=== PATIENT | female | born 1945 | race Caucasian/White ===

== ENCOUNTER → 2018-05-16 | Outpatient (CLI) | payer OTHER, MEDICARE ==
[~2018-05-16] MED LIST: CHOL500045 PO; LACT1CAP35 PO; LEVO112T4 PO; LEVO125T5 PO; LOSA1TAB22 PO; LOSA25TA5 PO; MULT-257 PO; VIT1CAPS10 PO
[2018-05-16 16:15] LABS: BASOPHILS # (AUTO) 0.03 x10^3/uL (0-0.1); BASOPHILS % (AUTO) 0 % (0-1); EOSINOPHILS # (AUTO) 0.09 x10^3/uL (0-0.4); EOSINOPHILS % (AUTO) 1 % (1-7); LYMPHOCYTES # (AUTO) 1.63 x10^3/uL (1-3.4); LYMPHOCYTES % (AUTO) 21 % (22-44); MD NO; MEAN CORPUSCULAR HEMOGLOBIN 32.3 pg (27.0-34.8); MEAN CORPUSCULAR HGB CONC 34.2 g/dL (32.4-35.8); MEAN CORPUSCULAR VOLUME 94.3 fL (80-100); MEAN PLATELET VOLUME 8.7 fL (7.4-10.4); MONOCYTES # (AUTO) 0.54 x10^3/uL (0.2-0.8); MONOCYTES % (AUTO) 7 % (2-9); NEUTROPHILS # (AUTO) 5.54 x10^3/uL (1.8-6.8); NEUTROPHILS % (AUTO) 71 % (42-75); PLATELET COUNT 225 x10^3/uL (130-400); RED BLOOD COUNT 4.02 x10^6/uL (3.82-5.3)
[2018-05-16 16:19] LABS: ALANINE AMINOTRANSFERASE 24 U/L (12-78); ALBUMIN 3.9 g/dL (3.4-5.0); ANION GAP 5 mmol/L (5-15); CALCIUM 8.2 mg/dL (8.5-10.1); CHLORIDE 107 mmol/L (98-107); CREATININE 0.93 mg/dL (0.55-1.02)
[2018-05-16 16:21] LABS: ALKALINE PHOSPHATASE 87 U/L (45-117); BILIRUBIN,TOTAL 0.3 mg/dL (0.2-1.0); TOTAL PROTEIN 7.3 g/dL (6.4-8.2)
[2018-05-16 16:23] LABS: INTERNATIONAL NORMALIZED RATIO 0.93 (0.93-1.1); MICROSCOPIC AUTO; PROTHROMBIN TIME 9.7 Seconds (9.6-11.5)
== END | disposition home or self-care (01) ==
LOC: STAR 14:59
PROVIDERS: ATTEND Urology
DX: Z01.818 Encounter for other preprocedural examination (principal); D49.512 Neoplasm of unspecified behavior of left kidney; I10 Essential (primary) hypertension; E66.01 Morbid (severe) obesity due to excess calories; E03.9 Hypothyroidism, unspecified
CPT/HCPCS: 36415; 71046; 80053; 81001; 85025; 85610; 85730; 87086; 93005

== ENCOUNTER 2018-06-06 10:08 | Inpatient (IN) | payer OTHER, MEDICARE ==
[~2018-06-06] VITALS: Ht 167.6 cm; Wt 80.9 kg
[2018-06-06] MEDS ORDERED: SODIUM CHLORIDE FLUSH 10ML SYR IVF ONE (10:30)
[2018-06-06] MEDS ORDERED: ONDANSETRON 2MG/ML, 2ML IVPush ONE (10:30)
[2018-06-06] MEDS ORDERED: SODIUM CHLORIDE 0.9% 1,000ML IVBOLUS ONE (10:30)
[2018-06-06] MEDS ORDERED: PLEASE ENTER WEIGHT MC SCH (10:31)
[2018-06-06] MEDS ORDERED: ONDANSETRON 2MG/ML, 2ML ONE (10:53)
[2018-06-06] MEDS ORDERED: MORPHINE SULFATE 4 MG/ML, 1ML ONE (10:54)
[2018-06-06] MEDS: MORPHINE SULFATE 4 MG/ML, 1ML IVPush PRN ×2 (10:55→19:50)
[2018-06-06 11:00] LABS: BASOPHILS # (AUTO) 0.01 x10^3/uL (0-0.1); BASOPHILS % (AUTO) 0 % (0-1); EOSINOPHILS % (AUTO) 0 % (1-7); LYMPHOCYTES # (AUTO) 0.49 x10^3/uL (1-3.4); LYMPHOCYTES % (AUTO) 4 % (22-44); MD NO; MEAN CORPUSCULAR HEMOGLOBIN 31.8 pg (27.0-34.8); MEAN CORPUSCULAR HGB CONC 33.7 g/dL (32.4-35.8); MEAN CORPUSCULAR VOLUME 94.2 fL (80-100); MEAN PLATELET VOLUME 8.8 fL (7.4-10.4); MONOCYTES # (AUTO) 0.55 x10^3/uL (0.2-0.8); MONOCYTES % (AUTO) 4 % (2-9); NEUTROPHILS # (AUTO) 11.51 x10^3/uL (1.8-6.8); NEUTROPHILS % (AUTO) 92 % (42-75); PLATELET COUNT 259 x10^3/uL (130-400); RED BLOOD COUNT 4.81 x10^6/uL (3.82-5.3); RED CELL DISTRIBUTION WIDTH 12.9 % (9.6-15.2)
[2018-06-06 11:13] LABS: ANION GAP 9 mmol/L (5-15); CALCIUM 8.8 mg/dL (8.5-10.1); CHLORIDE 106 mmol/L (98-107)
[2018-06-06 11:15] LABS: CREATININE 0.93 mg/dL (0.55-1.02)
[2018-06-06] MEDS ORDERED: OMNIPAQUE 350 MG/ML, 100ML BOTTLE ONE (11:35)
[2018-06-06 12:21] LABS: MICROSCOPIC INDICATED
[2018-06-06 12:33] LABS: CULTURE INDICATED? NO
[2018-06-06] MEDS ORDERED: ONDANSETRON ODT 4 MG PO PRN (13:00)
[2018-06-06] MEDS ORDERED: LABETALOL 5MG/ML, 20ML IVPush PRN (13:00)
[2018-06-06 13:42] VITALS: BP 130/80
[2018-06-06 13:48] LABS: FREE T4 (FREE THYROXINE) 1.45 ng/dL (0.76-1.46)
[2018-06-06] MEDS: morphine SULFATE 10 MG/ML, 1ML IVPush PRN (15:07)
[2018-06-06] MEDS: D5%-0.45% NACL 1,000 ML IV SCH (15:07)
[2018-06-06 19:31] VITALS: BP 114/74
[2018-06-06] MEDS: FAMOTIDINE 20 MG/2 ML IVPush SCH (19:50)
[2018-06-06] MEDS: ONDANSETRON 2MG/ML, 2ML IVPush PRN (19:50)
[2018-06-07] MEDS: D5%-0.45% NACL 1,000 ML IV SCH ×3 (00:03→16:00)
[2018-06-07] MEDS: morphine SULFATE 10 MG/ML, 1ML IVPush PRN ×3 (00:17→08:49)
[2018-06-07 01:00] VITALS: BP 103/71
[2018-06-07 04:57] LABS: BASOPHILS # (AUTO) 0.01 x10^3/uL (0-0.1); BASOPHILS % (AUTO) 0 % (0-1); EOSINOPHILS # (AUTO) 0.08 x10^3/uL (0-0.4); EOSINOPHILS % (AUTO) 2 % (1-7); LYMPHOCYTES # (AUTO) 0.77 x10^3/uL (1-3.4); LYMPHOCYTES % (AUTO) 22 % (22-44); MD NO; MEAN CORPUSCULAR HEMOGLOBIN 31.9 pg (27.0-34.8); MEAN CORPUSCULAR HGB CONC 33.9 g/dL (32.4-35.8); MEAN CORPUSCULAR VOLUME 94.1 fL (80-100); MEAN PLATELET VOLUME 8.6 fL (7.4-10.4); MONOCYTES % (AUTO) 17 % (2-9); NEUTROPHILS % (AUTO) 58 % (42-75); PLATELET COUNT 223 x10^3/uL (130-400); RED BLOOD COUNT 4.05 x10^6/uL (3.82-5.3); RED CELL DISTRIBUTION WIDTH 13.4 % (9.6-15.2)
[2018-06-07 05:00] LABS: ALBUMIN 3.1 g/dL (3.4-5.0); ANION GAP 4 mmol/L (5-15); CALCIUM 8.1 mg/dL (8.5-10.1); CHLORIDE 109 mmol/L (98-107)
[2018-06-07 05:12] LABS: ALANINE AMINOTRANSFERASE 16 U/L (12-78); ALKALINE PHOSPHATASE 63 U/L (45-117); BILIRUBIN,TOTAL 0.8 mg/dL (0.2-1.0); CREATININE 0.75 mg/dL (0.55-1.02); THYROID STIMULATING HORMONE 0.193 mIU/L (0.358-3.740); TOTAL PROTEIN 6.2 g/dL (6.4-8.2)
[2018-06-07 07:53] VITALS: BP 118/75
[2018-06-07] MEDS: FAMOTIDINE 20 MG/2 ML IVPush SCH ×2 (08:50→21:25)
[2018-06-07] MEDS: ONDANSETRON 2MG/ML, 2ML IVPush PRN (09:09)
[2018-06-07] MEDS ORDERED: MIDAZOLAM 1 MG/ML, 2ML ONE (11:15)
[2018-06-07] MEDS ORDERED: FENTANYL PF 250 MCG/5ML ONE (11:15)
[2018-06-07] MEDS ORDERED: PROPOFOL 10 MG/ML, 20ML ONE (11:16)
[2018-06-07] MEDS ORDERED: SUCCINYLCHOLINE 20 MG/ML, 10ML ONE (11:17)
[2018-06-07] MEDS ORDERED: ROCURONIUM 10MG/ML,5ML ONE (11:17)
[2018-06-07] MEDS ORDERED: NEOSTIGMINE 1 MG/ML, 10ML ONE (11:18)
[2018-06-07] MEDS ORDERED: GLYCOPYRROLATE 0.4 MG/2 ML, 2ML ONE (11:18)
[2018-06-07] MEDS ORDERED: CEFAZOLIN 1,000 MG ONE ×2 (11:19)
[2018-06-07] MEDS ORDERED: WATER-INJECTION,STERILE 10 ML IV ONE (11:19)
[2018-06-07] MEDS ORDERED: EPINEPHRINE 1 MG/ML, 1ML ONE (12:18)
[2018-06-07] MEDS ORDERED: BACITRACIN 50,000 UNIT ONE (12:18)
[2018-06-07] MEDS ORDERED: BUPIVACAINE/PF 0.5% ONE (12:18)
[2018-06-07] MEDS ORDERED: SCOPOLAMINE PATCH, 1.5MG PATCH.TD72 TD ONE (12:39)
[2018-06-07] MEDS ORDERED: PROMETHAZINE 25 MG SUPP PR PRN (13:00)
[2018-06-07] MEDS ORDERED: PROMETHAZINE 12.5 MG SUPP PR PRN (13:00)
[2018-06-07] MEDS ORDERED: hydrALAzine 20 MG/ML, 1ML IV PRN (13:00)
[2018-06-07] MEDS ORDERED: OXYcodone 5 MG/5 ML ORAL.SOL UDC PO PRN (13:00)
[2018-06-07] MEDS ORDERED: ONDANSETRON 2MG/ML, 2ML IV PRN ×2 (13:00→19:00)
[2018-06-07] MEDS ORDERED: ACETAMINOPHEN 325 MG TABLET PO PRN (13:00)
[2018-06-07] MEDS ORDERED: PROMETHAZINE 25 MG/ML, 1ML IV PRN (13:00)
[2018-06-07] MEDS ORDERED: ONDANSETRON ODT 8 MG PO PRN (13:00)
[2018-06-07] MEDS ORDERED: FENTANYL PF 100 MCG/2ML IV PRN (13:00)
[2018-06-07] MEDS ORDERED: MEPERIDINE/PF 25MG/0.5ML IVPush PRN (13:00)
[2018-06-07] MEDS ORDERED: LABETALOL 5MG/ML, 20ML IV PRN (13:00)
[2018-06-07] MEDS ORDERED: HYDROmorphone 1 MG/ML, 1ML IV PRN (13:00)
[2018-06-07] MEDS ORDERED: MORPHINE SULFATE 4 MG/ML, 1ML IVPush PRN (13:00)
[2018-06-07] MEDS ORDERED: ONDANSETRON 2MG/ML, 2ML ONE (13:10)
[2018-06-07] MEDS ORDERED: DEXAMETHASONE 4 MG/ML, 1ML ONE ×2 (13:10)
[2018-06-07] MEDS ORDERED: PHENYLEPHRINE 10 MG/ML ONE (17:01)
[2018-06-07 19:10] VITALS: BP 120/76
[2018-06-07] MEDS: CEFAZOLIN PMX 1GM/50ML 50 ML IVPB SCH (21:25)
[2018-06-07] MEDS: D5%-0.45NACL+KCL 20MEQ 1,000 ML IV SCH (21:25)
[2018-06-08] MEDS: ACETAMINOPHEN 325 MG TABLET PO PRN ×3 (00:29→13:12)
[2018-06-08 00:43] VITALS: BP 115/59
[2018-06-08 05:02] LABS: ALBUMIN 2.6 g/dL (3.4-5.0); ANION GAP 4 mmol/L (5-15); CALCIUM 7.9 mg/dL (8.5-10.1); CHLORIDE 107 mmol/L (98-107); CREATININE 0.72 mg/dL (0.55-1.02)
[2018-06-08] MEDS: CEFAZOLIN PMX 1GM/50ML 50 ML IVPB SCH (05:11)
[2018-06-08 05:22] LABS: BASOPHILS % (AUTO) 0 % (0-1); EOSINOPHILS # (AUTO) 0.01 x10^3/uL (0-0.4); EOSINOPHILS % (AUTO) 0 % (1-7); LYMPHOCYTES # (AUTO) 0.73 x10^3/uL (1-3.4); LYMPHOCYTES % (AUTO) 16 % (22-44); MD NO; MEAN CORPUSCULAR HEMOGLOBIN 32.2 pg (27.0-34.8); MEAN CORPUSCULAR HGB CONC 34.2 g/dL (32.4-35.8); MEAN CORPUSCULAR VOLUME 94.3 fL (80-100); MEAN PLATELET VOLUME 8.8 fL (7.4-10.4); MONOCYTES % (AUTO) 17 % (2-9); NEUTROPHILS # (AUTO) 3.13 x10^3/uL (1.8-6.8); NEUTROPHILS % (AUTO) 67 % (42-75); PLATELET COUNT 194 x10^3/uL (130-400); RED BLOOD COUNT 3.71 x10^6/uL (3.82-5.3); RED CELL DISTRIBUTION WIDTH 13.1 % (9.6-15.2)
[2018-06-08] MEDS: D5%-0.45NACL+KCL 20MEQ 1,000 ML IV SCH ×3 (05:40→22:38)
[2018-06-08 07:40] VITALS: BP 110/71
[2018-06-08] MEDS: FAMOTIDINE 20 MG/2 ML IVPush SCH ×2 (08:11→21:11)
[2018-06-08] MEDS: LEVOTHYROXINE 112 MCG TABLET PO SCH (08:32)
[2018-06-08 13:38] VITALS: BP 127/78
[2018-06-08 20:09] VITALS: BP 121/72
[2018-06-08] MEDS: CALCIUM CARBONATE 500 MG TAB.CHEW PO PRN (23:39)
[2018-06-09 03:55] VITALS: BP 107/71
[2018-06-09] MEDS: LEVOTHYROXINE 112 MCG TABLET PO SCH (06:07)
[2018-06-09] MEDS: D5%-0.45NACL+KCL 20MEQ 1,000 ML IV SCH (06:08)
[2018-06-09] MEDS: FAMOTIDINE 20 MG/2 ML IVPush SCH (08:09)
[2018-06-09] MEDS: LOSARTAN 25MG TABLET PO SCH (08:09)
[2018-06-09 08:20] VITALS: BP 112/71
[2018-06-09 08:52] LABS: BASOPHILS # (AUTO) 0.02 x10^3/uL (0-0.1); BASOPHILS % (AUTO) 0 % (0-1); EOSINOPHILS # (AUTO) 0.09 x10^3/uL (0-0.4); EOSINOPHILS % (AUTO) 2 % (1-7); LYMPHOCYTES # (AUTO) 1.15 x10^3/uL (1-3.4); LYMPHOCYTES % (AUTO) 18 % (22-44); MD NO; MEAN CORPUSCULAR HGB CONC 33.1 g/dL (32.4-35.8); MEAN CORPUSCULAR VOLUME 93.8 fL (80-100); MEAN PLATELET VOLUME 8.4 fL (7.4-10.4); MONOCYTES # (AUTO) 0.59 x10^3/uL (0.2-0.8); MONOCYTES % (AUTO) 10 % (2-9); NEUTROPHILS # (AUTO) 4.38 x10^3/uL (1.8-6.8); NEUTROPHILS % (AUTO) 70 % (42-75); PLATELET COUNT 200 x10^3/uL (130-400); RED BLOOD COUNT 3.81 x10^6/uL (3.82-5.3); RED CELL DISTRIBUTION WIDTH 13.2 % (9.6-15.2)
[2018-06-09 09:02] LABS: ANION GAP 5 mmol/L (5-15); CALCIUM 7.5 mg/dL (8.5-10.1); CHLORIDE 107 mmol/L (98-107); CREATININE 0.71 mg/dL (0.55-1.02)
[2018-06-09] MEDS ORDERED: MAGNESIUM SULFATE PMX 2GM/50ML 50 ML IV ONE (13:00)
[2018-06-09] MEDS ORDERED: SODIUM PHOSPHATE 4 MEQ/ML IV SCH (13:00)
[2018-06-09 13:40] VITALS: BP 112/71
[2018-06-09] MEDS ORDERED: SODIUM PHOSPHATE 30 MMOL in SODIUM CHLORIDE 0.9% 500 ML IV ONE (14:00)
[2018-06-09] MEDS: TAMSULOSIN 0.4 MG CAP.ER.24H PO SCH (14:23)
[2018-06-09] MEDS: CALCIUM CARBONATE 500 MG TAB.CHEW PO PRN (17:39)
[2018-06-09 19:57] VITALS: BP 100/65
[2018-06-09] MEDS: FAMOTIDINE 20 MG TABLET PO SCH (21:45)
[2018-06-10 01:31] VITALS: BP 102/66
[2018-06-10 05:24] LABS: BASOPHILS # (AUTO) 0.02 x10^3/uL (0-0.1); BASOPHILS % (AUTO) 0 % (0-1); EOSINOPHILS # (AUTO) 0.13 x10^3/uL (0-0.4); EOSINOPHILS % (AUTO) 2 % (1-7); LYMPHOCYTES # (AUTO) 1.22 x10^3/uL (1-3.4); LYMPHOCYTES % (AUTO) 19 % (22-44); MD NO; MEAN CORPUSCULAR HEMOGLOBIN 32.3 pg (27.0-34.8); MEAN CORPUSCULAR HGB CONC 34.2 g/dL (32.4-35.8); MEAN CORPUSCULAR VOLUME 94.3 fL (80-100); MEAN PLATELET VOLUME 8.5 fL (7.4-10.4); MONOCYTES % (AUTO) 9 % (2-9); NEUTROPHILS # (AUTO) 4.36 x10^3/uL (1.8-6.8); NEUTROPHILS % (AUTO) 69 % (42-75); PLATELET COUNT 178 x10^3/uL (130-400); RED BLOOD COUNT 3.42 x10^6/uL (3.82-5.3); RED CELL DISTRIBUTION WIDTH 12.6 % (9.6-15.2)
[2018-06-10 05:28] LABS: ALBUMIN 2.3 g/dL (3.4-5.0); ANION GAP 7 mmol/L (5-15); CALCIUM 7.2 mg/dL (8.5-10.1); CHLORIDE 110 mmol/L (98-107)
[2018-06-10 05:33] LABS: ALANINE AMINOTRANSFERASE 9 U/L (12-78); ALKALINE PHOSPHATASE 62 U/L (45-117); BILIRUBIN,TOTAL 0.4 mg/dL (0.2-1.0); CREATININE 0.57 mg/dL (0.55-1.02); TOTAL PROTEIN 5.1 g/dL (6.4-8.2)
[2018-06-10] MEDS: LEVOTHYROXINE 112 MCG TABLET PO SCH (06:46)
[2018-06-10 06:54] VITALS: BP 112/71
[2018-06-10] MEDS: TAMSULOSIN 0.4 MG CAP.ER.24H PO SCH (10:35)
[2018-06-10] MEDS: FAMOTIDINE 20 MG TABLET PO SCH (10:35)
[2018-06-10] MEDS: LOSARTAN 25MG TABLET PO SCH (10:35)
== END 2018-06-10 13:41 | disposition home or self-care (01) | DRG 330 ==
LOC: ED 10:54 → EDIP 12:26 → 3NW 13:32
PROVIDERS: ADMIT Internal Medicine; ATTEND Internal Medicine
PROC: 0DBB0ZZ Excision of Ileum, Open Approach (ICD-10-PCS; 2018-06-07)
PROC: 0YU50JZ Supplement Right Inguinal Region with Synthetic Substitute, Open Approach (ICD-10-PCS; principal; 2018-06-07 12:00)
DX: K40.30 Unilateral inguinal hernia, with obstruction, without gangrene, not specified as recurrent (principal); K43.6 Other and unspecified ventral hernia with obstruction, without gangrene; C64.2 Malignant neoplasm of left kidney, except renal pelvis; E44.1 Mild protein-calorie malnutrition; I10 Essential (primary) hypertension; K82.8 Other specified diseases of gallbladder; E03.9 Hypothyroidism, unspecified; N28.1 Cyst of kidney, acquired; Z82.3 Family history of stroke; Z82.5 Family history of asthma and other chronic lower respiratory diseases; Z90.5 Acquired absence of kidney; Z85.850 Personal history of malignant neoplasm of thyroid; Z98.84 Bariatric surgery status
CPT/HCPCS: 36415; 99285; S0028; 74177; 80048; 80053; 81001; 82040; 83735; 84100; 84439; 84443; 85025; 88302; 88305; 88307; 88333; 96361; 96374; J0171; J0690; J1100; J2250; J2405; J2704; J2710; J3010; J3490; Q0162; Q9967; C1781; J0330; J2270; J2370; J3475; J3480; J7030; J7040

== ENCOUNTER → 2018-07-20 | Outpatient (CLI) | payer OTHER, MEDICARE ==
[~2018-07-20] MED LIST changes: -LOSA25TA5 PO; +LOSA25TA6 PO
[2018-07-20 15:22] LABS: MICROSCOPIC AUTO
[2018-07-20 15:23] LABS: BASOPHILS # (AUTO) 0.02 x10^3/uL (0-0.1); BASOPHILS % (AUTO) 0 % (0-1); EOSINOPHILS # (AUTO) 0.06 x10^3/uL (0-0.4); EOSINOPHILS % (AUTO) 1 % (1-7); LYMPHOCYTES # (AUTO) 2.14 x10^3/uL (1-3.4); LYMPHOCYTES % (AUTO) 32 % (22-44); MD NO; MEAN CORPUSCULAR HEMOGLOBIN 31.3 pg (27.0-34.8); MEAN CORPUSCULAR HGB CONC 32.9 g/dL (32.4-35.8); MEAN CORPUSCULAR VOLUME 94.9 fL (80-100); MEAN PLATELET VOLUME 8.1 fL (7.4-10.4); MONOCYTES # (AUTO) 0.45 x10^3/uL (0.2-0.8); MONOCYTES % (AUTO) 7 % (2-9); NEUTROPHILS # (AUTO) 4.09 x10^3/uL (1.8-6.8); NEUTROPHILS % (AUTO) 61 % (42-75); PLATELET COUNT 260 x10^3/uL (130-400); RED BLOOD COUNT 3.92 x10^6/uL (3.82-5.3); RED CELL DISTRIBUTION WIDTH 14.4 % (9.6-15.2)
[2018-07-20 15:26] LABS: INTERNATIONAL NORMALIZED RATIO 0.91 (0.93-1.1); PROTHROMBIN TIME 9.5 Seconds (9.6-11.5)
[2018-07-20 15:29] LABS: ALANINE AMINOTRANSFERASE 18 U/L (12-78); ALBUMIN 3.9 g/dL (3.4-5.0); ANION GAP 6 mmol/L (5-15); CALCIUM 8.3 mg/dL (8.5-10.1); CHLORIDE 111 mmol/L (98-107); CREATININE 0.76 mg/dL (0.55-1.02)
[2018-07-20 15:32] LABS: ALKALINE PHOSPHATASE 90 U/L (45-117); BILIRUBIN,TOTAL 0.3 mg/dL (0.2-1.0); TOTAL PROTEIN 7.1 g/dL (6.4-8.2)
== END | disposition home or self-care (01) ==
LOC: STAR 14:22
PROVIDERS: ATTEND Urology
DX: Z01.818 Encounter for other preprocedural examination (principal); D49.512 Neoplasm of unspecified behavior of left kidney
CPT/HCPCS: 36415; 80053; 81001; 85025; 85610; 85730; 87086; 93005

== ENCOUNTER 2018-08-03 07:30 | Inpatient (IN) | payer OTHER, MEDICARE ==
[2018-07-20 14:47] VITALS: BP 143/83
[~2018-08-03] VITALS: Ht 167.6 cm; Wt 69.8 kg
[2018-08-03] MEDS ORDERED: LACTATED RINGERS 1,000 ML IV SCH (09:29)
[2018-08-03] MEDS ORDERED: FENTANYL PF 250 MCG/5ML ONE (10:18)
[2018-08-03] MEDS ORDERED: MIDAZOLAM 1 MG/ML, 2ML ONE (10:18)
[2018-08-03] MEDS ORDERED: SCOPOLAMINE PATCH, 1.5MG PATCH.TD72 TD ONE (10:55)
[2018-08-03] MEDS ORDERED: BUPIVACAINE 0.25% ONE (10:56)
[2018-08-03] MEDS ORDERED: THROMBIN 5,000 UNIT VIAL TP ONE (10:56)
[2018-08-03] MEDS ORDERED: ACETAMINOPHEN 500 MG TABLET PO ONE (11:00)
[2018-08-03] MEDS ORDERED: GABAPENTIN 300 MG CAPSULE PO ONE (11:00)
[2018-08-03] MEDS ORDERED: NEOSTIGMINE 1 MG/ML, 10ML ONE (11:11)
[2018-08-03] MEDS ORDERED: ROCURONIUM 10 MG/ML,10ML ONE (11:11)
[2018-08-03] MEDS ORDERED: GLYCOPYRROLATE 0.2MG/1ML, 5ML ONE (11:11)
[2018-08-03] MEDS ORDERED: CEFAZOLIN 1,000 MG ONE (11:11)
[2018-08-03] MEDS ORDERED: ONDANSETRON 2MG/ML, 2ML ONE (11:11)
[2018-08-03] MEDS ORDERED: DEXAMETHASONE 4 MG/ML, 1ML ONE (11:11)
[2018-08-03] MEDS ORDERED: PROPOFOL 10 MG/ML, 20ML ONE (11:11)
[2018-08-03] MEDS ORDERED: hydrALAzine 20 MG/ML, 1ML IV PRN (12:30)
[2018-08-03] MEDS ORDERED: LORazepam 2 MG/ML, 1ML IVPush PRN (12:30)
[2018-08-03] MEDS ORDERED: FENTANYL PF 100 MCG/2ML IV PRN (12:30)
[2018-08-03] MEDS ORDERED: LABETALOL 5MG/ML, 20ML IV PRN (12:30)
[2018-08-03] MEDS ORDERED: ALBUTEROL SULFATE 2.5 MG/3 ML NPPB PRN (12:30)
[2018-08-03] MEDS ORDERED: PROMETHAZINE 25 MG/ML, 1ML IV PRN (12:30)
[2018-08-03] MEDS ORDERED: OXYcodone 5 MG/5 ML ORAL.SOL UDC PO PRN (12:30)
[2018-08-03] MEDS ORDERED: HYDROmorphone 2 MG/ML, 1ML ONE (14:25)
[2018-08-03] MEDS ORDERED: PROCHLORPERAZINE 5 MG/ML, 2ML ONE (14:25)
[2018-08-03] MEDS: HYDROmorphone 2 MG/ML, 1ML IV PRN ×3 (14:28→15:01)
[2018-08-03] MEDS ORDERED: PROCHLORPERAZINE 5 MG/ML, 2ML IV PRN (15:00)
[2018-08-03] MEDS ORDERED: HYDROmorphone 1 MG/ML, 1ML IV PRN (19:00)
[2018-08-03] MEDS ORDERED: TEMAZEPAM 15 MG CAPSULE PO PRN (19:00)
[2018-08-03] MEDS ORDERED: HYDROcodone/APAP 5/325 TABLET PO PRN (19:00)
[2018-08-03] MEDS ORDERED: ONDANSETRON 2MG/ML, 2ML IV PRN (19:00)
[2018-08-03] MEDS: D5%-0.45NACL+KCL 20MEQ 1,000 ML IV SCH (19:00)
[2018-08-03] MEDS: CEFAZOLIN PMX 1GM/50ML 50 ML IVPB SCH (20:31)
[2018-08-03 21:01] VITALS: BP 129/80
[2018-08-04 00:05] VITALS: BP 121/75
[2018-08-04] MEDS: CEFAZOLIN PMX 1GM/50ML 50 ML IVPB SCH (03:31)
[2018-08-04] MEDS: D5%-0.45NACL+KCL 20MEQ 1,000 ML IV SCH (03:31)
[2018-08-04 04:07] VITALS: BP 121/73
[2018-08-04 05:07] LABS: ANION GAP 5 mmol/L (5-15); CHLORIDE 107 mmol/L (98-107); CREATININE 1.02 mg/dL (0.55-1.02)
[2018-08-04] MEDS ORDERED: LEVOTHYROXINE 100 MCG TABLET ONE (06:19)
[2018-08-04] MEDS ORDERED: LEVOTHYROXINE 25 MCG TABLET ONE (06:19)
[2018-08-04] MEDS: LEVOTHYROXINE 112 MCG TABLET PO SCH (06:32)
[2018-08-04 08:30] VITALS: BP 130/70
[2018-08-04] MEDS: ENOXAPARIN 40 MG/0.4 ML SQ SCH (08:47)
[2018-08-04] MEDS: LOSARTAN 25MG TABLET PO SCH (08:47)
[2018-08-04] MEDS ORDERED: FUROSEMIDE 20 MG/2 ML IV ONE (09:30)
[2018-08-04] MEDS: D5%-0.45% NACL 1,000 ML IV SCH ×2 (12:30→22:15)
[2018-08-04 15:17] VITALS: BP 113/76
[2018-08-04 18:53] VITALS: BP 109/53
[2018-08-04] MEDS: CALCIUM CARBONATE 500 MG TAB.CHEW PO SCH (20:57)
[2018-08-05 01:46] VITALS: BP 116/60
[2018-08-05 05:39] LABS: ANION GAP 5 mmol/L (5-15); CALCIUM 7.8 mg/dL (8.5-10.1); CHLORIDE 106 mmol/L (98-107)
[2018-08-05] MEDS ORDERED: LEVOTHYROXINE 100 MCG TABLET ONE (06:44)
[2018-08-05] MEDS ORDERED: LEVOTHYROXINE 25 MCG TABLET ONE (06:44)
[2018-08-05] MEDS: LEVOTHYROXINE 112 MCG TABLET PO SCH (06:48)
[2018-08-05 07:37] VITALS: BP 107/63
[2018-08-05] MEDS: ENOXAPARIN 40 MG/0.4 ML SQ SCH (07:38)
[2018-08-05] MEDS: CALCIUM CARBONATE 500 MG TAB.CHEW PO SCH (07:38)
[2018-08-05] MEDS: D5%-0.45% NACL 1,000 ML IV SCH (07:39)
[2018-08-05] MEDS: LOSARTAN 25MG TABLET PO SCH (07:39)
== END 2018-08-05 15:00 | disposition home or self-care (01) | DRG 614 ==
LOC: ORIP 08:47 → EDSTATUS 11:00 → 4NOR 18:09
PROVIDERS: ADMIT Urology; ATTEND Urology
PROC: 0GT24ZZ Resection of Left Adrenal Gland, Percutaneous Endoscopic Approach (ICD-10-PCS; 2018-08-03)
PROC: 8E0W4CZ Robotic Assisted Procedure of Trunk Region, Percutaneous Endoscopic Approach (ICD-10-PCS; 2018-08-03)
PROC: 0TT14ZZ Resection of Left Kidney, Percutaneous Endoscopic Approach (ICD-10-PCS; principal; 2018-08-03 11:00)
DX: E27.9 Disorder of adrenal gland, unspecified (principal); K56.7 Ileus, unspecified; N28.89 Other specified disorders of kidney and ureter; E87.5 Hyperkalemia
CPT/HCPCS: 36415; J3490; 80048; 85014; 85018; 86850; 86900; 88307; C1729; G0378; J0690; J1100; J1170; J1650; J2250; J2405; J2704; J2710; J3010; C1760; J0780; J1940; J3480; J7120